=== PATIENT | male | born 1975 | race African-American/Black ===

== ENCOUNTER 2018-04-21 15:10 | Emergency (ER) | payer MEDICAID, SELFPAY ==
[2018-04-21 15:11] VITALS: BP 134/86; PULSE 75; RESP 15; TEMP 36.9; O2SAT 100; BMI 20.4
--- NOTE | 2018-04-21 17:09 | ED.RN ---
PT REPORTED TO THIS NURSE THAT HIS 'S THREE OLDER CHILDREN HAVE BEEN PENETRATING MY THREE YEAR OLD SON THIS NURSE THEN REPORTED THIS INFORMATION TO HRO, MARION LANDRUM.
--- NOTE | 2018-04-21 17:12 | ED.RN ---
HRO, MARION LANDRUM, INFORMED THIS NURSE THAT THERE IS AN OPEN CASE CURRENTLY ON THE PT'S CLAIMS.
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
[2018-04-21 17:39] LABS: Absolute Lymphocyte Count 1.98 X10^3/ul (0.83-4.51); Absolute Neutrophil Count 3.2 X10^3/uL (2.0-7.7); Basophil# 0.01 X10^3/uL; Basophil% 0.2 % (0-1); Eosinophil# 0.13 X10^3/uL; Eosinophils% 2.2 % (0-5); Hematocrit 39.2 % (40-54); Hemoglobin 12.9 g/dl (13.0-16.5); Lymphocyte # 1.98 X10^3/ul (4.0); Lymphocyte % 33.8 % (19-41); Mean Corp Hgb Conc 32.9 g/gl (32-36); Mean Corpuscular Hgb 24.7 pg (27.0-32.0); Mean Corpuscular Volume 75.1 fL (80-94); Mean Platelet Vol. 9.9 fl (6.2-12.0); Monocyte# 0.59 X10^3/uL; Monocyte% 10.1 % (0-10); Neutrophil # 3.15 X10^3/uL (2.7-7.7); Neutrophil % 53.7 % (47-70); Platelet Count 159 K/mm3 (150-450); RBC Distribution Width CV 13.3 % (11.6-14.6); RBC Distribution Width SD 36.3 fl (35.1-43.9); Red Blood Count 5.22 M/mm3 (4.6-6.2); White Blood Count 5.9 K/mm3 (4.4-11.0)
[2018-04-21 17:41] LABS: POSITIVE COUNT NO; POSITIVE DIFFERENTIAL NO; POSITIVE MORPHOLOGY NO
[2018-04-21 17:54] LABS: Anion Gap 5 (5-15); BUN 13 mg/dL (7-18); BUN/Creat Ratio 13.3 RATIO (10-20); Calcium,Total 9.2 mg/dL (8.5-10.1); Chloride 101 mmol/L (98-107); Creatinine, Serum 0.98 mg/dL (0.70-1.30); EST Glomerular Filtration Rate 89 mL/min (>60); Est Glom Filt Rate - Afr Amer 108 mL/min (>60); Estimated Creatinine Clearance 100.14 ml/min; Glucose 93 mg/dL (74-106); Potassium 3.9 mmol/L (3.5-5.1); Sodium Level 137 mmol/L (136-145)
--- NOTE | 2018-04-21 17:56 | ED.RN ---
PT CALLED ER, STATES SHE MUST HAVE INFORMATION. ATTEMPTED TO EXPLAIN TO THAT STAFF IS NOT ALLOWED TO GIVE PT INFORMATION OUT, BECAME UPSET. ATTEMPTED TO EXPLAIN AGAIN. STILL UPSET. LEFT PHONE NUMBER FOR OT CALL. [phone]
[2018-04-21 18:00] VITALS: RESP 16
[2018-04-21 18:17] LABS: Alcohol, Blood (Medical)-Serum < 3.0 mg/dL
[2018-04-21 18:53] LABS: Amphetamine Urine VISTA NEGATIVE (<1000 ng/mL); Barbiturate Urine VISTA NEGATIVE (< 200 ng/mL); Benzodiazepine Urine VISTA NEGATIVE (< 200 ng/mL); Cocaine Urine VISTA NEGATIVE (< 300 ng/mL); Ecstacy Urine VISTA NEGATIVE (< 500 ng/mL); Methadone Urine VISTA NEGATIVE (< 300 ng/mL); PCP Urine VISTA NEGATIVE (< 25 ng/mL); THC Urine VISTA POSITIVE (< 50 ng/mL); Vista UDS pH Range 6
[2018-04-21 20:00] VITALS: RESP 16
--- NOTE | 2018-04-21 20:55 | CM.ED ---
SOCIAL WORK NOTE PT REQUIRED CRISIS EVAL. STRIPPER OPAQUER, CARLOS HERE AND EVALUATED PT. CARLOS WORKING ON PLACEMENT TO OHP. NEENA CERDA, SYSTEMS DEVELOPER, BRANCH ASSISTANT.
[2018-04-21 22:00] VITALS: BP 142/88; PULSE 61; RESP 16; O2SAT 100
--- NOTE | 2018-04-21 23:26 | ED.RN ---
CARLOS FROM [facility] WAS HERE SEEING THIS PT WHEN I GOT HERE.
[2018-04-21 23:45] VITALS: PULSE 75; RESP 16
[2018-04-22] VITALS (18 sets, daily range): BP systolic 127–151; BP diastolic 74–111; PULSE 67–83; RESP 14–18; O2SAT 14–100
--- NOTE | 2018-04-22 11:11 | NURSING ---
NO OLD EKGS
[2018-04-22 13:00] LABS: AST(SGOT) 181 U/L (15-37); Alanine Aminotransfer ALT/SGPT 398 U/L (16-61); Albumin, Serum 4.1 g/dL (3.2-5.0); Alkaline Phosphatase 106 U/L (45-117); Bilirubin, Direct 0.29 mg/dL (0.00-0.30); Protein, Total 9.1 g/dL (6.4-8.2)
--- NOTE | 2018-04-22 14:55 | ED.RN ---
PT SIGNED RELEASE FOR [facility] TO DISCUSS ANY AND ALL OF HIS HEALTHCARE AND TREATMENTS WITH HIS .
[2018-04-22] MEDS: Ziprasidone IM 20 MG/ML VIAL IM (15:54)
--- NOTE | 2018-04-22 16:08 | ED.RN ---
Addendum entered by Cheli Daniels 04/22/18 16:16: PT ADVISED COULD BRING CELL PHONE TO VIDEO CHAT WITH CHILDREN. Original Note: PT BECAME AGITATED AFTER SPEAKING TO ON PHONE. PT REQUESTING LAP TOP SO HE CAN VIDEO CHAT WITH HIS CHILDREN. PT CALMED AFTER SPEAKING WITH THIS RN, BECAME COOPERATIVE. QUAN MURGUIA, PT COOPERATIVE WITH MED ADMINISTRATION.
--- NOTE | 2018-04-22 23:32 | ED.RN ---
PT'S GWEN TOOK PT'S [facility]ALLET HOME PER PT REQUEST PRIOR TO PT BEING TRANSFERRED TO [facility].
== END 2018-04-22 20:09 ==
PROVIDERS: Emergency Medicine; Emergency Provider Emergency Medicine
DX: F30.9 Manic episode, unspecified (principal); Z72.0 Tobacco use
CPT/HCPCS: 36415; 80048; 80076; 80307; 80320; 85025; 93005; 96372; 99283; G0480; J3486

== ENCOUNTER 2018-05-07 23:10 | Emergency (ER) | payer MEDICAID, SELFPAY ==
[2018-05-07 23:12] VITALS: BP 159/107; PULSE 85; RESP 16; TEMP 37; O2SAT 100; BMI 20.5
[2018-05-07 23:20] VITALS: BP 159/107; PULSE 85; RESP 16; TEMP 37; O2SAT 100
--- NOTE | 2018-05-07 23:32 | ED.VISSUMM ---
- ER Visit Summary Date of Service: 05/07/18 Chief Complaint: Left leg pain History of Present Illness: The patient is a 42 M who presents with left leg pain. He complains of sharp pain starting at the site of his hip and buttock and radiating all the way down his left leg. This is worse with movement or walking. He states he had a little bit of pain last night but it became more severe today. He denies any numbness tingling weakness. No abdominal pain urinary retention or fecal incontinence. No back pain. No history of trauma fall injury. No history of prior similar symptoms. No back surgeries. Physical Examination: Afebrile vitals notable for blood pressure 159/107 Patient resting comfortably in bed Moist mucous membranes Heart regular rate and rhythm Lungs clear Abdomen soft nontender nondistended Left lower extremity 2+ dorsalis pedis pulse normal sensation to light touch normal strength 5 out of 5 dorsiflexion, plantarflexion, extensor hallucis longus, no focal bony tenderness, active full range of motion Test Results: Not indicated Emergency Department Course and Treatment: I do believe the patient's symptoms are most likely related to lumbar radiculopathy. He was given naproxen here as well as a prescription for the same. He was advised of signs and symptoms to monitor for and understands to return for new or worsening symptoms and was discharged home. Treatment Plan: [] Disposition: Discharge Impression: Lumbar radiculopathy This note was generated with [email or web address] dictation software. It may contain incorrect words, spelling, and punctuation that were not noted in review of the chart prior to signing ED Disposition - Plan for ED Patient: Chief Complaint: Lower Extremity Injury Referrals: Care Physician,No Primary [Primary Care Provider] -
--- NOTE | 2018-05-07 23:35 | ED.DEP ---
ED Disposition - Plan for ED Patient: Chief Complaint: Lower Extremity Injury Instructions: ED Sciatica Prescriptions: Naproxen [Naprosyn] 500 mg PO BID #14 tab Referrals: Care Physician,No Primary [Primary Care Provider] -
[2018-05-07] MEDS: Naproxen 500 MG Tablet PO (23:37)
[2018-05-08 00:22] VITALS: BP 145/100; PULSE 94; RESP 16; O2SAT 100
--- NOTE | 2018-05-08 00:23 | ED.RN ---
PT encouraged to wait in lobby for ride home, given antiinflammatory. PT needed wheelchair to lobby for pain relief.
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
== END 2018-05-08 00:23 | disposition home or self-care (01) ==
PROVIDERS: Emergency Provider Emergency Medicine
DX: M54.16 Radiculopathy, lumbar region (principal); Z72.0 Tobacco use; F31.9 Bipolar disorder, unspecified
CPT/HCPCS: 99283

== ENCOUNTER 2018-07-12 09:27 | Emergency (ER) | payer MEDICAID, SELFPAY ==
[2018-07-12 09:31] VITALS: BP 142/119; PULSE 79; RESP 22; TEMP 36.7; O2SAT 100; BMI 22.2
--- NOTE | 2018-07-12 09:44 | ED.RN ---
PT GIVEN ICE WATER. PT LOUD STATING WE ARE DISRESPECTFUL BECAUSE HE IS BLACK. HE IS GOING TO [place] EVERYONE HERE. PT IS MANIC. THINKS HE IS TALKING TO GOD. STATES EVERYONE HERE IN THE HOSPITAL IS GOING TO TOMORROW.
[2018-07-12] MEDS: Ziprasidone IM 20 MG/ML VIAL IM ×2 (09:48→17:19)
--- NOTE | 2018-07-12 09:50 | ED.RN ---
PD WAS ABLE TALK PT INTO TAKING HIS MEDICATION.
[2018-07-12 10:28] VITALS: RESP 14
--- NOTE | 2018-07-12 10:46 | ED.RN ---
PT CALM AND RESPECTFUL SINCE QUAN. PT COOPERATIVE WITH WITH URINE COLLECTION AND LAB DRAW.
[2018-07-12 10:55] LABS: Anion Gap 9 (5-15); BUN 13 mg/dL (7-18); BUN/Creat Ratio 11.6 RATIO (10-20); Calcium,Total 8.7 mg/dL (8.5-10.1); Chloride 104 mmol/L (98-107); Creatinine, Serum 1.12 mg/dL (0.70-1.30); EST Glomerular Filtration Rate 76 mL/min (>60); Est Glom Filt Rate - Afr Amer 92 mL/min (>60); Estimated Creatinine Clearance 93.09 ml/min; Glucose 88 mg/dL (74-106); Potassium 3.4 mmol/L (3.5-5.1); Sodium Level 137 mmol/L (136-145)
[2018-07-12 10:57] LABS: Absolute Lymphocyte Count 1.15 X10^3/ul (0.83-4.51); Absolute Neutrophil Count 3.1 X10^3/uL (2.0-7.7); Basophil# 0.02 X10^3/uL; Basophil% 0.4 % (0-1); Eosinophil# 0.11 X10^3/uL; Eosinophils% 2.2 % (0-5); Hematocrit 37.1 % (40-54); Hemoglobin 12.3 g/dl (13.0-16.5); Lymphocyte # 1.15 X10^3/ul (4.0); Lymphocyte % 22.9 % (19-41); Mean Corp Hgb Conc 33.2 g/gl (32-36); Mean Corpuscular Hgb 24.7 pg (27.0-32.0); Mean Corpuscular Volume 74.5 fL (80-94); Mean Platelet Vol. 9.8 fl (6.2-12.0); Monocyte# 0.65 X10^3/uL; Monocyte% 12.9 % (0-10); Neutrophil % 61.6 % (47-70); Platelet Count 126 K/mm3 (150-450); RBC Distribution Width CV 13.3 % (11.6-14.6); RBC Distribution Width SD 36.2 fl (35.1-43.9); Red Blood Count 4.98 M/mm3 (4.6-6.2)
[2018-07-12 11:00] LABS: Amphetamine Urine VISTA NEGATIVE (<1000 ng/mL); Barbiturate Urine VISTA NEGATIVE (< 200 ng/mL); Benzodiazepine Urine VISTA NEGATIVE (< 200 ng/mL); Cocaine Urine VISTA NEGATIVE (< 300 ng/mL); Ecstacy Urine VISTA NEGATIVE (< 500 ng/mL); Methadone Urine VISTA NEGATIVE (< 300 ng/mL); PCP Urine VISTA NEGATIVE (< 25 ng/mL); THC Urine VISTA POSITIVE (< 50 ng/mL); Vista UDS pH Range 6
[2018-07-12 11:02] LABS: Differential Indicated SCAN CRITERIA MET; POSITIVE COUNT NO; POSITIVE DIFFERENTIAL NO; POSITIVE MORPHOLOGY YES
[2018-07-12 11:06] LABS: Differential Comment SCANNED
[2018-07-12 11:08] LABS: Anisocytosis 2+; Hypochromasia 1+; Microcytosis 2+
[2018-07-12 11:17] LABS: Alcohol, Blood (Medical)-Serum < 3.0 mg/dL
[2018-07-12] MEDS: LORazepam 1 MG Tablet PO (11:17)
--- NOTE | 2018-07-12 11:19 | ED.RN ---
CALLED [facility] ANSWERING GIVING MESSAGE TO COUNSELOR
--- NOTE | 2018-07-12 11:37 | ED.RN ---
BARRY MERAZ CALLED FROM THE [facility] AND WILL BE IN TO ACCESS PATIENT.
[2018-07-12 12:00] VITALS: RESP 14
--- NOTE | 2018-07-12 12:59 | ED.RN ---
BARRY MERAZ CALLED FROM THE [facility] AND SAID THEY HAVE ALOT GOING ON AND WASNT SURE WHEN HE COULD GET OVER HERE.
--- NOTE | 2018-07-12 13:56 | ED.RN ---
BARRY MERAZ CALLED AND SAID HE HAD A CLIENT TO SEE IN THE COMMUNITY AND THEN HE WOULD BE IN.
--- NOTE | 2018-07-12 15:02 | ED.VISSUMM ---
- ER Visit Summary Date of Service: 07/12/18 Chief Complaint: Agitation History of Present Illness: The patient is a 42 M patient brought in by police from home after called for increasing agitation. History of bipolar and paranoid schizophrenia, reports not taking his medications due to not needing them. Records reviewed, admitted this past March for which she reports was to [facility]. Reports having 5 children, denies suicidal homicidal ideations. Patient was agitated on arrival, he required chemical restraints with Geodon after arrival. Admits to THC use, denies alcohol or tobacco use. Review of pink slipped by police, reported patient banging on doors, reporting that he is God, making gestures of being God. Physical Examination: General: Alert and oriented ?3, no acute distress HEENT: Normocephalic, atraumatic. Moist mucosa membranes Neck: supple, nontender. Cardiovascular: Regular rate and rhythm, no murmurs Respiratory: Normal breath sounds, symmetric, no distress Abdomen: Soft, nontender, nondistended Extremities: Nontender, no edema, pulses intact ?4 Neuro: no focal neurological deficits. Psych: Denies suicidal homicidal ideation, tangentiality Test Results: Labs stable positive for THC. Alcohol negative. Emergency Department Course and Treatment: Patient evaluated by myself after Geodon he was calm. Denies suicidal homicidal ideations. Similar presentation in the past March requiring hospitalization. He is medically cleared, however during evaluation became more agitated requiring Ativan. [place] [facility] [place] Treatment Plan: [] Disposition: Pending Impression: 1. manic behavior 2. Medical noncompliance 3. Bipolar history 4. Paranoid schizophrenia history This note was generated with [employer] dictation software. It may contain incorrect words, spelling, and punctuation that were not noted in review of the chart prior to signing ED Disposition - Plan for ED Patient: Diagnosis: Manic behavior, Hx of bipolar disorder, Hx of paranoid schizophrenia Referrals: Care Physician,No Primary [Primary Care Provider] -
--- NOTE | 2018-07-12 15:05 | ED.DCSUM_ITS ---
- ER Visit Summary Date of Service: 07/12/18 Chief Complaint: Agitation History of Present Illness: The patient is a 42 M patient brought in by police from home after called for increasing agitation. History of bipolar and paranoid schizophrenia, reports not taking his medications due to not needing t hem. Records reviewed, admitted this past March for which she reports was to [facility]. Reports having 5 children, denies suicidal homicidal ideations. Patient was agitated on arrival, he required chemical restraints with Geodon after arrival. Admits to THC use, denies alcohol or tobacco use. Review of pink slipped by police, reported patient banging on doors, reporting that he is God, making gestures of being God. Physical Examination: General: Alert and oriented ?3, no acute distress HEENT: Normocephalic, atraumatic. Moist mucosa membranes Neck: supple, nontender. Cardiovascular: Regular rate and rhythm, no murmurs Respiratory: Normal breath sounds, symmetric, no distress Abdomen: Soft, nontender, nondistended Extremities: Nontender, no edema, pulses intact ?4 Neuro: no focal neurological deficits. Psych: Denies suicidal homicidal ideation, tangentiality Test Results: Labs stable positive for THC. Alcohol negative. Emergency Department Course and Treatment: Patient evaluated by myself after Geodon he was calm. Denies suicidal homicidal ideations. Similar presentation in the past March requiring hospitalization. He is medically cleared, however during evaluation became more agitated requiring Ativan. Currently [place] [facility] [place]. Treatment Plan: [] Disposition: Pending Impression: 1. manic behavior 2. Medical noncompliance 3. Bipolar history 4. Paranoid schizophrenia history This note was generated with [employer] dictation software. It may contain incorrect words, spelling, and punctuation that were not noted in review of the chart prior to signing ED Disposition - Plan for ED Patient: Diagnosis: Manic behavior, Hx of bipolar disorder, Hx of paranoid schizophrenia Referrals: Care Physician,No Primary [Primary Care Provider] -
[2018-07-12 16:42] VITALS: BP 144/107; PULSE 84; RESP 16; O2SAT 97
[2018-07-12 17:58] VITALS: BP 142/96; PULSE 87; RESP 16; O2SAT 98
--- NOTE | 2018-07-12 19:48 | ED.RN ---
DURING RN TO RN REPORT WITH LOVE BARROS I WAS INSTRUCTED TO ADD LIVER PROFILE TO PT'S ORDERS. DUE TO PRIOR HX OF ELEVATED LIVER ENZYMES. LIVER PANEL ORDER OBTAINED AND PLACED. LOVE INSTRUCTED ME THAT SHE WOULD NEED TO NOTIFY HER WELLNESS INSTRUCTOR ABOUT CONCERNS FOR INAPPROPRIATE PLACEMENT ON THERE FLOOR. I WAS THEN INSTRUCTED THAT IT WAS THEIR PROTOCOL THAT TRANSPORT ONLY BE CALLED AFTER RN TO RN REPORT WAS CALLED AND PT WAS OUT OF RESTRAINTS FOR AN HOUR. A SECOND CALL WAS PLACED BY JULY ABOUT CONCERNS AND REPORT WAS GIVEN A SECOND TIME. SHE WAS ALSO INQUIRING ABOUT PT'S AGGRESSIVE BEHAVIOR AND TREATMENT OF STAFF. AT WHICH TIME I WAS INSTRUCTED TO FAX FINDS TO THEIR FACILITY AND ADMISSION WOULD RE-EVALUATE PT. CRISIS AND ED DR WAS INFORMED. FAMILY WAS UPDATE. PT IS RESTING IN BED WITH NO S/S OF DISTRESS. Tiffanie HILLS RN 2021
[2018-07-12 20:08] LABS: AST(SGOT) 82 U/L (15-37); Alanine Aminotransfer ALT/SGPT 67 U/L (16-61); Albumin, Serum 4.1 g/dL (3.2-5.0); Alkaline Phosphatase 84 U/L (45-117); Bilirubin, Direct 0.34 mg/dL (0.00-0.30); Globulin 3.9 g/dL (2.2-4.2)
--- NOTE | 2018-07-12 21:17 | ED.RN ---
NOTIFIED HARI FROM THE COUNSELING CENTER THAT THIS PT HAS BEEN DENIED AT [facility].
--- NOTE | 2018-07-12 21:44 | ED.RN ---
MOTHER IN LAW HAS TAKEN PT'S PHONE AND CARDS. PT STILL HAS HIS WALLET AND CLOTHES. PT WAS WOKEN UP AND TOLD OF BELONGINGS BEING TAKEN HOME. MOTHER IN LAW HAS LEFT WIVES PHONE NUMBER [phone] AND HER NAME IS ANDREA. Tiffanie HILLS, RN [phone]
[2018-07-12 22:00] VITALS: BP 156/96; PULSE 60; RESP 16; O2SAT 97
[2018-07-13] VITALS (7 sets, daily range): BP systolic 115–173; BP diastolic 70–90; PULSE 62–73; RESP 15–24; TEMP 36.3; O2SAT 93–99
[2018-07-13] MEDS: Ziprasidone IM 20 MG/ML VIAL IM (03:02)
[2018-07-13] MEDS: LORazepam 2 MG/ML Syringe IM (03:10)
--- NOTE | 2018-07-13 03:18 | ED.RN ---
PT CAME TO THE NURSES STATION REQUESTING TO GO HOME. THIS NURSE ATTEMPTED TO EXPLAIN HE IS GOING TO A HOSPITAL IN [place]. PT STATES I'M NOT GOING TO [place]. DEPORT ME TO [facility]. THIS NURSE CONVINCED PT TO GO BACK INTO HIS ROOM. I ATTEMPTED TO TALK WITH THE PT AND EXPLAIN WHAT MEDICATIONS HE HAS RECEIVED AND THE REASON HE HAS RECEIVED MEDICATIONS. ALSO ATTEMPTED TO EXPLAIN TO THE PT WHY HE IS BEING TRANSFERRED TO ANOTHER HOSPITAL. PT CONTINUES TO MOVE AROUND THE ROOM YELLING AND MOVING HIS ARMS AROUND. THIS NURSE CONTINUED TO ATTEMPT TO TALK WITH THE PT. TOMMY GÓMEZ IN THE DEPARTMENT. THIS NURSE CONTINUED TO TALK WITH THE PT AND CONVINCE THE PT TO GET INTO THE BED AND ALLOW THE STAFF TO GIVE HIM SOME MEDICATION TO HELP HIS CALM DOWN. PT BECAME LOUDER AND MOVING AROUND THE ROOM MORE. PT STATES WOMAN, WOMAN, WOMAN, WOMAN, YOU ARE DISRESPECTING ME. I CONTINUED TO ATTEMPT TO TALK WITH THE PT AND CALM HIM DOWN. PT REFUSING TO GET INTO THE BED AND REFUSING MEDICATION. THIS NURSE OFFERED THE PT MILK WHICH HE REQUESTED BUT THE PT REFUSED THE MILK BECAUSE HE DID NOT OPEN THE CARTON. I CONTINUED TO ATTEMPT TO TALK WITH THE PT AND EXPLAIN HIS CARE AND NEED FOR TRANSFER. PT CONTINUES TO GET LOUD AND MORE ANIMATED. AT THIS POINT, TOMMY GÓMEZ ENTERED THE ROOM AND TWO POLICE OFFICERS ASSISTED TO PT INTO THE BED. AN ADDITIONAL RED HAT LINUX ADMINISTRATOR AND FOUR STAFF MEMBERS PLACED THE PT IN FOUR POINT LOCKED RESTRAINTS
--- NOTE | 2018-07-13 04:51 | ED.RN ---
PT SLEEPING. WHEN AWAKENS PT IS COOPERATIVE. RESTRAINTS DISCONTINUED. DR SANTO AWARE
== END 2018-07-13 08:26 ==
PROVIDERS: Emergency Medicine; Emergency Provider Emergency Medicine
DX: F31.9 Bipolar disorder, unspecified (principal); F20.0 Paranoid schizophrenia; Z91.19 Patient's noncompliance with other medical treatment and regimen; F12.90 Cannabis use, unspecified, uncomplicated; Z72.0 Tobacco use
CPT/HCPCS: 36415; 80048; 80076; 80307; 80320; 85025; 96372; 99285; J7030; A4216; G0480; J3486

== ENCOUNTER 2019-05-04 19:24 | Emergency (ER) | payer MEDICAID, SELFPAY ==
[2019-05-04 19:26] VITALS: BP 169/133; PULSE 119; RESP 16; TEMP 37.2; O2SAT 98; BMI 22.6
[2019-05-04 20:46] LABS: Absolute Lymphocyte Count 1.86 X10^3/uL (0.83-4.51); Absolute Neutrophil Count 2.7 X10^3/uL (2.0-7.7); Basophil# 0.02 X10^3/uL; Basophil% 0.4 % (0-1); Eosinophil# 0.19 X10^3/uL; Eosinophils% 3.6 % (0-5); Hematocrit 38.6 % (40-54); Hemoglobin 12.2 g/dL (13.0-16.5); Lymphocyte # 1.86 X10^3/ul (4.0); Mean Corp Hgb Conc 31.6 g/dL (32-36); Mean Corpuscular Hgb 23.9 pg (27.0-32.0); Mean Corpuscular Volume 75.5 fL (80-94); Mean Platelet Vol. 10.2 fl (6.2-12.0); Monocyte# 0.59 X10^3/uL; Monocyte% 11.1 % (0-10); NRBC Flagged by Analyzer 0 % (0-5); Neutrophil # 2.65 X10^3/uL (2.7-7.7); Neutrophil % 49.7 % (47-70); Platelet Count 184 K/mm3 (150-450); RBC Distribution Width CV 12.3 % (11.6-14.6); RBC Distribution Width SD 33.3 fl (35.1-43.9); Red Blood Count 5.11 M/mm3 (4.6-6.2); White Blood Count 5.3 K/mm3 (4.4-11.0)
[2019-05-04 20:56] LABS: Amphetamine Urine VISTA NEGATIVE (<1000 ng/mL); Anion Gap 3 (5-15); BUN 18 mg/dL (7-18); BUN/Creat Ratio 14.4 RATIO (10-20); Barbiturate Urine VISTA NEGATIVE (< 200 ng/mL); Benzodiazepine Urine VISTA NEGATIVE (< 200 ng/mL); Calcium,Total 9.1 mg/dL (8.5-10.1); Chloride 104 mmol/L (98-107); Cocaine Urine VISTA NEGATIVE (< 300 ng/mL); Creatinine, Serum 1.25 mg/dL (0.70-1.30); EST Glomerular Filtration Rate 67 mL/min (>60); Ecstacy Urine VISTA NEGATIVE (< 500 ng/mL); Est Glom Filt Rate - Afr Amer 81 mL/min (>60); Estimated Creatinine Clearance 86.22 ml/min; Glucose 90 mg/dL (74-106); Methadone Urine VISTA NEGATIVE (< 300 ng/mL); PCP Urine VISTA NEGATIVE (< 25 ng/mL); Potassium 4.2 mmol/L (3.5-5.1); Sodium Level 137 mmol/L (136-145); THC Urine VISTA POSITIVE (< 50 ng/mL); Vista UDS pH Range 6
--- NOTE | 2019-05-04 21:00 | ED.RN ---
CALLED CRISIS AT THE REQUEST OF DR PAGE TO SEE THIS PT, ANGIE IS PILLOWCASE TURNER
[2019-05-04 21:05] LABS: Alcohol, Blood (Medical)-Serum < 3.0 mg/dL
[2019-05-04 21:25] VITALS: RESP 18
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
[2019-05-04 23:00] VITALS: BP 116/76; PULSE 73; RESP 18; O2SAT 98
[2019-05-04 23:07] VITALS: BP 155/81; PULSE 106; RESP 18; O2SAT 98
== END 2019-05-04 23:08 | disposition home or self-care (01) ==
PROVIDERS: Emergency Provider Emergency Medicine; Family Provider Registered Nurse; PCP Registered Nurse
DX: F31.9 Bipolar disorder, unspecified (principal); F20.9 Schizophrenia, unspecified; F17.200 Nicotine dependence, unspecified, uncomplicated; Z91.14 Patient's other noncompliance with medication regimen
CPT/HCPCS: 80048; 80307; 80320; 85025; 99284; G0480

== ENCOUNTER 2019-06-07 10:33 | Emergency (ER) | payer MEDICAID, SELFPAY ==
[2019-06-07 10:34] VITALS: BP 173/126; PULSE 102; RESP 18; TEMP 36.8; O2SAT 99; BMI 21.8
[2019-06-07 11:17] LABS: Absolute Lymphocyte Count 2.55 X10^3/uL (0.83-4.51); Absolute Neutrophil Count 2.8 X10^3/uL (2.0-7.7); Basophil# 0.03 X10^3/uL; Basophil% 0.5 % (0-1); Eosinophil# 0.16 X10^3/uL; Eosinophils% 2.6 % (0-5); Hematocrit 40.4 % (40-54); Hemoglobin 13.1 g/dL (13.0-16.5); Lymphocyte # 2.55 X10^3/ul (4.0); Mean Corp Hgb Conc 32.4 g/dL (32-36); Mean Corpuscular Hgb 24.6 pg (27.0-32.0); Mean Corpuscular Volume 75.8 fL (80-94); Mean Platelet Vol. 9.4 fl (6.2-12.0); Monocyte# 0.49 X10^3/uL; Monocyte% 8.1 % (0-10); NRBC Flagged by Analyzer 0 % (0-5); Neutrophil # 2.82 X10^3/uL (2.7-7.7); Neutrophil % 46.5 % (47-70); Platelet Count 193 K/mm3 (150-450); RBC Distribution Width CV 13.2 % (11.6-14.6); RBC Distribution Width SD 35.4 fl (35.1-43.9); Red Blood Count 5.33 M/mm3 (4.6-6.2); White Blood Count 6.1 K/mm3 (4.4-11.0)
[2019-06-07 11:26] LABS: Anion Gap 5 (5-15); BUN 11 mg/dL (7-18); BUN/Creat Ratio 8.3 RATIO (10-20); Calcium,Total 9.2 mg/dL (8.5-10.1); Chloride 106 mmol/L (98-107); Creatinine, Serum 1.32 mg/dL (0.70-1.30); EST Glomerular Filtration Rate 63 mL/min (>60); Est Glom Filt Rate - Afr Amer 76 mL/min (>60); Estimated Creatinine Clearance 78.69 ml/min; Glucose 148 mg/dL (74-106); Potassium 3.7 mmol/L (3.5-5.1); Sodium Level 138 mmol/L (136-145)
[2019-06-07 11:33] LABS: Alcohol, Blood (Medical)-Serum < 3.0 mg/dL
--- NOTE | 2019-06-07 11:37 | ED.DCSUM_ITS ---
History of Present Illness Informant: Patient, - - Police Onset: Today Context: Sudden Onset Conflict: - - Confucianist Timing: Continuous Current Severity: Severe Maximum Severity: Severe Worsened by: Situational factors Associated Symptoms: Agitated, Angry, Hostile, Threatening. Negative for: Depressed, Change in Eating, Change in sleeping, Decreased Interest, Guilt, Decreased Concentration, Hopelessness, Suicidal Thoughts, Easily distracted, Grandiosity, Flight of Ideas, Increased activity, Pressured Speech, Confusion, Paranoia, Visual Hallucinations, Auditory Hallucinations Specific plan (suicidal thought): None. Denies thoughts of suicide. Narrative: 43-year-old male with a history of bipolar disorder is brought into the emergency department by the police after the patient had a episode at his [place] where he was very agitated and threatening to the members of the [employer] and ther [facility] police were called who had to bring him to the emergency department. Patient states that last week he had been thrown out of Bible study because he disagreed with the regional sales engineer who was also the teacher and was told never to come back but he went back today because he states that he loves God and really feels like he gets a lot of enjoyment out of Bible study but when he came he states the regional sales engineer told him he was not welcome in the class anymore after last week and the patient became very upset and he states that the next thing that he realized police were there and he got very agitated admittedly and anger at the police because they wanted to bring him outside of the [employer] and he was very angry he was yelling but he was not physically harming anyone but they brought him outside had to take him down requiring multiple officers and bring him to the hospital. Patient is not suicidal or homicidal and he states that he has been taking his medications he just became upset because he gets a lot of enjoyment out of Bible study and is unable to go anymore. He denies drugs or alcohol. He did not physically harm anyone at the [employer]. Prior similar symptoms: Yes Recent Illness/Hospitalization: No <Josep Dailey - Last Filed: 06/07/19 15:11> <Katy Partida - Last Filed: 06/07/19 15:25> Chief Complaint: Mental Health Past Medical History Prior records reviewed: Yes Past Medical History: - - Bipolar disorder Surgical History: no surgical history Lives: With Family Smoking Status: Never smoker Alcohol: None Drugs: None <Josep Dailey - Last Filed: 06/07/19 15:11> <HelgaKaty - Last Filed: 06/07/19 15:25> - Allergies and Home Meds Allergies/Adverse Reactions: Allergies No Known Allergies Allergy (Verified 06/07/19 10:34) Primary Care Physician: Malou Cabrera NP-C [Primary Care Provider] - 1 Day Review of Systems All systems negative except as indicated General: Denies: Chills, Fever Eyes: Denies: Visual changes - bilaterally, Blurred Vision - bilaterally, Diplopia ENT: Denies: Rhinorrhea, Sore throat Respiratory: Denies: Dyspnea, Cough, Sputum Gastrointestinal: Denies: Abdominal pain, Nausea, Vomiting, Diarrhea Genitourinary: Denies: Dysuria, Hematuria, Frequency Musculoskeletal: Denies: Myalgias, Arthralgias, Neck pain, Back pain, Swelling, Extremity Pain Skin: Denies: Rash, Abscess, Abrasions, Wounds Neurological: Denies: Weakness, Parasthesia, Numbness Psych: Denies: Depression, Anxiety, Suicidal thoughts, Suicidal ideations <Josep Dailey - Last Filed: 06/07/19 15:11> Physical Exam Vital Signs/Narrative: Vital Signs Temp Pulse Resp BP Pulse Ox 06/07/19 10:34 98.2 F 102 H 18 173/126 H 99 Inital Vital Signs reviewed: Yes General: Well nourished, Well developed Head: Normocephalic, Atraumatic Eyes: Perrl, EOMI ENT: Moist mucous membranes Neck: Supple, Nontender Cardiovascular: Regular rate, Regular rhythm, No murmurs Respiratory: No distress, CTA bilaterally, Chest nontender Abdomen: Soft, Nontender, Nondistended, Normal bowel sounds, No masses Back: Nontender, Normal Inspection Extremities: Nontender, No Edema Skin: Normal color, No rash Neurological: Alert, Oriented x3, Normal Strength, Normal Sensation, Normal Gait Psych: Normal Speech Pattern, Logical sequential goal directed thoughts, No suicidal or homicidal ideation, Normal Appearance, Poor Judgement. Negative for: Pressured Speech, Poverty of Speech, Flight of Ideas, Incoherent thoughts, Suicidal thoughts, Homicidal thoughts, Hallucinations, Delusions <Josep Dailey - Last Filed: 06/07/19 15:11> Vital Signs/Narrative: Vital Signs Pulse Resp BP Pulse Ox 06/07/19 12:55 68 18 159/113 H 100 <Katy Partida - Last Filed: 06/07/19 15:25> Diagnostic/Tx/Re-eval Restraints applied: No Repeat interview and exam performed by/time: Josep dailey at 1511. resting comfortably. cooperative. Patient's medical screening evaluation was unremarkable and we did have him speak with our crisis counselors. After thorough evaluation they determined they did not feel he needed to be hospitalized and they stated to me that he has an appointment with his counselor in 2 days but patient's states that she will call the counselor tomorrow with hopes that he may be seen tomorrow. During his emergency department stay the patient was calm and cooperative without the need for restraints. No medications were given. He was discharged with his . <Josep Dailey - Last Filed: 06/07/19 15:11> I have personally performed a [id number] assessment of the patient and have reviewed the PA note. My seya findings include 43-year-old male presenting after disturbance at Bible study. Patient denies suicidal or homicidal ideation. He states he was upset when he had a disagreement over interpretation of the Bible with the regional sales engineer. He states he was asked to not come back. He states this further upset him. He is now calm and cooperative. He will be evaluated by the counseling center in the ED. <Katy Partida - Last Filed: 06/07/19 15:25> ED Disposition <Josep Dailey - Last Filed: 06/07/19 15:11> <Katy Partida - Last Filed: 06/07/19 15:25> - Plan for ED Patient: Disposition: Home or Assisted Living Instructions: Bipolar Disorder Referrals: Malou Cabrera NP-C [Primary Care Provider] - 1 Day
[2019-06-07 11:55] LABS: Amphetamine Urine VISTA NEGATIVE (<1000 ng/mL); Barbiturate Urine VISTA NEGATIVE (< 200 ng/mL); Benzodiazepine Urine VISTA NEGATIVE (< 200 ng/mL); Cocaine Urine VISTA NEGATIVE (< 300 ng/mL); Ecstacy Urine VISTA NEGATIVE (< 500 ng/mL); Methadone Urine VISTA NEGATIVE (< 300 ng/mL); PCP Urine VISTA NEGATIVE (< 25 ng/mL); THC Urine VISTA POSITIVE (< 50 ng/mL); Vista UDS pH Range 6
[2019-06-07 12:55] VITALS: BP 159/113; PULSE 68; RESP 18; O2SAT 100
--- NOTE | 2019-06-07 13:17 | ED.RN ---
BELEN WITH CRISIS WILL BE IN SOON SHE CAN
--- NOTE | 2019-06-07 13:18 | ED.RN ---
PT RESTING QUIETLY IN BED WATCHING TV, REMAINS COOPERATIVE AT THIS TIME. ATE LUNCH, THANKED THIS RN PROFUSELY. DENIES FURTHER NEEDS.
== END 2019-06-07 15:49 | disposition home or self-care (01) ==
PROVIDERS: Emergency Provider Physician Assistant Medical; PCP Registered Nurse
DX: F31.9 Bipolar disorder, unspecified (principal); Z79.899 Other long term (current) drug therapy
CPT/HCPCS: 80048; 80307; 80320; 85025; 99283; G0480

== ENCOUNTER 2019-09-11 11:53 | Emergency (ER) | payer MEDICAID, SELFPAY ==
[2019-09-11] VITALS (9 sets, daily range): BP systolic 122–186; BP diastolic 89–120; PULSE 76–102; RESP 16–21; TEMP 35.9; O2SAT 94–98; BMI 21.6
--- NOTE | 2019-09-11 12:08 | EKG12_ITS ---
Test Reason : Blood Pressure : / mmHG Vent. Rate : 092 BPM Atrial Rate : 092 BPM P-R Int : 148 ms QRS Dur : 084 ms QT Int : 338 ms P-R-T Axes : 075 085 033 degrees QTc Int : 417 ms Sinus rhythm with sinus arrhythmia with occasional Premature ventricular complexes Otherwise normal ECG Confirmed by ELVIA HUGHES, WOODY ([id number]), editorial intern JHONNY LANDRUM ([id number]) on 09/15/2019 3:00:16 PM Referred By: VAISHNAVI Confirmed By:WOODY GAN MD
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
[2019-09-11] MEDS: Ziprasidone IM 20 MG/ML VIAL IM (12:15)
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
[2019-09-11] MEDS: LORazepam 2 MG/ML Syringe IM (12:45)
[2019-09-11] MEDS: Midazolam 2 MG/2 ML Syringe IM (12:45)
[2019-09-11 13:29] LABS: Bacteria 0 SEEN /hpf (None Seen); Mucous, Urine 0 SEEN /hpf (<or=2+); Squamous Epithelial Cells - UA 0 SEEN /hpf (0-5); White Blood Cells 0 SEEN /hpf (0-5)
[2019-09-11 13:37] LABS: Color, Urine Yellow (Yellow); Glucose, Dipstick Normal (Normal); Ketone-Dipstick Negative (Negative); Leukocyte Esterase-Dipstick Negative /ul (Negative); Nitrite-Dipstick Negative (Negative); Occult Blood-Urine 10 /ul (Negative); Protein-Dipstick 100 mg/dl (Negative); Urine Bilirubin Dipstick Negative (Negative); Urine Clarity Clear (Clear); Urine Urobilinogen 1 mg/dl (Normal)
[2019-09-11 13:40] LABS: Absolute Lymphocyte Count 1.05 X10^3/uL (0.83-4.51); Absolute Neutrophil Count 3.1 X10^3/uL (2.0-7.7); Basophil# 0.03 X10^3/uL; Basophil% 0.6 % (0-1); Eosinophil# 0.13 X10^3/uL; Eosinophils% 2.7 % (0-5); Hemoglobin 12.9 g/dL (13.0-16.5); Lymphocyte # 1.05 X10^3/ul (4.0); Lymphocyte % 21.8 % (19-41); Mean Corp Hgb Conc 32.3 g/dL (32-36); Mean Corpuscular Hgb 24.1 pg (27.0-32.0); Mean Corpuscular Volume 74.8 fL (80-94); Mean Platelet Vol. 10.2 fl (6.2-12.0); Monocyte# 0.48 X10^3/uL; NRBC Flagged by Analyzer 0 % (0-5); Neutrophil # 3.12 X10^3/uL (2.7-7.7); Neutrophil % 64.7 % (47-70); Platelet Count 155 K/mm3 (150-450); RBC Distribution Width CV 13.9 % (11.6-14.6); RBC Distribution Width SD 36.9 fl (35.1-43.9); Red Blood Count 5.35 M/mm3 (4.6-6.2); White Blood Count 4.8 K/mm3 (4.4-11.0)
[2019-09-11 13:53] LABS: Amphetamine Urine VISTA NEGATIVE (<1000 ng/mL); Barbiturate Urine VISTA NEGATIVE (< 200 ng/mL); Benzodiazepine Urine VISTA POSITIVE (< 200 ng/mL); Cocaine Urine VISTA NEGATIVE (< 300 ng/mL); Ecstacy Urine VISTA NEGATIVE (< 500 ng/mL); Methadone Urine VISTA NEGATIVE (< 300 ng/mL); PCP Urine VISTA NEGATIVE (< 25 ng/mL); THC Urine VISTA POSITIVE (< 50 ng/mL); Vista UDS pH Range 7
[2019-09-11 13:53] LABS: ALB/GLOB Ratio 0.7 RATIO (0.9-2.4); AST(SGOT) 178 U/L (15-37); Alanine Aminotransfer ALT/SGPT 444 U/L (16-61); Albumin, Serum 3.8 g/dL (3.2-5.0); Alkaline Phosphatase 109 U/L (45-117); Anion Gap 6 (5-15); BUN 13 mg/dL (7-18); BUN/Creat Ratio 9.9 RATIO (10-20); Calcium,Total 9.2 mg/dL (8.5-10.1); Chloride 108 mmol/L (98-107); Creatinine, Serum 1.31 mg/dL (0.70-1.30); EST Glomerular Filtration Rate 63 mL/min (>60); Est Glom Filt Rate - Afr Amer 77 mL/min (>60); Estimated Creatinine Clearance 80.56 ml/min; Globulin 5.4 g/dL (2.2-4.2); Glucose 105 mg/dL (74-106); Potassium 3.3 mmol/L (3.5-5.1); Protein, Total 9.2 g/dL (6.4-8.2); Sodium Level 141 mmol/L (136-145)
[2019-09-11 13:58] LABS: Red Blood Cells-Urine 0-5 SEEN /hpf (0-5)
[2019-09-11 14:04] LABS: Alcohol, Blood (Medical)-Serum < 3.0 mg/dL
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
--- NOTE | 2019-09-11 20:33 | ED.RN ---
spoke with amol HUGHES to remove last restraint. pt on phone with his .
--- NOTE | 2019-09-11 23:45 | NURSING ---
TALKED TO BELEN AT 1550
[2019-09-12] VITALS: BP 123/98; PULSE 84; RESP 16; O2SAT 96
--- NOTE | 2019-09-12 00:30 | ED.RN ---
Pt screamed out and this nurse entered room, pt reported there is a demon in me and it wants out, it hurts, no one in [place] can figure out what is wrong pt was given emotional support. pt currently talking to Maris from crisis.
[2019-09-12 02:44] VITALS: RESP 14
[2019-09-12 03:00] VITALS: BP 155/78; PULSE 87; RESP 15; TEMP 36.9; O2SAT 99
[2019-09-12 06:22] LABS: CPK Total, Creatine Kinase 2057 U/L (39-308)
--- NOTE | 2019-09-12 07:00 | NURSING ---
FAXED LAB TO HOSPITAL
--- NOTE | 2019-09-12 08:15 | NURSING ---
ACCEPTED AT [facility]
[2019-09-12 08:37] VITALS: BP 179/135; PULSE 117; O2SAT 99
--- NOTE | 2019-09-12 08:40 | NURSING ---
CALLED [facility] FOR [facility]SPORT. ETA IS 3 HRS
[2019-09-12 10:13] VITALS: BP 142/113; PULSE 76; RESP 22; O2SAT 96
--- NOTE | 2019-09-12 10:27 | ED.RN ---
REPORT GIVEN TO EMS CREW
== END 2019-09-12 10:28 ==
LOC: ED 13:01
PROVIDERS: Emergency Medicine; Emergency Provider Emergency Medicine
DX: F31.2 Bipolar disorder, current episode manic severe with psychotic features (principal); F22 Delusional disorders; Z91.14 Patient's other noncompliance with medication regimen; F17.210 Nicotine dependence, cigarettes, uncomplicated
CPT/HCPCS: 80053; 80307; 80320; 81001; 82550; 85025; 87635; 93005; 96372; 99285; G2023; P9612; G0480; J3486; U0004

== ENCOUNTER 2019-09-22 09:00 | Outpatient (RCR) | payer MEDICAID, SELFPAY ==
[2019-09-11 12:00] VITALS: BMI 21.6
--- NOTE | 2019-09-22 09:00 | BH.COMM ---
Communication Note - Communication with Client Communication Note: Met with pt to complete intial paperwork. No significant changes since pre-admission screening. Medication compliant. Sleep is appropriate. Met with his psychiatrist yesterday and has appt with outpatient therapist today.Complete [place] Suicide [facility]. Low risk. Denies any suicidal thoughts for past 30 years.
--- NOTE | 2019-09-22 10:58 | BH.MDN_ITS ---
Multi-Disciplinary Note - Note 30-min Individual Time Started:: 10:10 Date: 09/22/19 Purpose of session/treatment goals addressed:: At the begining of second group in IOP day pt noted that he was over-stimulated. This therapist took him into office to speak with him. Eye Contact:: Good Motor Activity:: Restless - Pt stands during the session. States being restless since discharge from inpt. He spoke with his psychiatrist yesterday and no medication changes. Appearance:: Casual Speech:: Pressured Mood:: Anxious Affect:: Congruent Thoughts:: Linear, Logical, Racing, No evidence of hallucinations/delusions noted Staff Interventions:: Active listening, problem-solving skills, reviewed coping skills to helpe with anxiety. Client Response:: Pt reports that he often hears music inside his head which makes it very challenging for him to focus on tasks at times. He states that this is an everyday occurence for the past several years. He states that the music is positive and encouraging and normally helpful however when in public (stores, groups) it can impact his focus. Normally he will sing outloud with the song to help it leave his head however he understands that this is not appropriate in the group setting which is why I told the teacher. He denies any visual or command hallucinations. Alert and oriented. While he is focused on temple he is not delusional or religiously pre-occupied. Insight that while temple is important he knows that in [place] it can upset people if he comes off as too synagogue. He beleives that his temple and connect with his spirituality is very important to him and bring him energy to work through things. He admits that it is difficult to identify what is spiritual or synagogue and what is symptom of Bipolar. He attempted to problem-solve ways to decrease external stimuli and help with decreasing the impact of internal stimulation. He beleives that he felt hurried this AM and that this was new environment which may have caused increased anxiety which exacerbated the music. He remains restless however is pleasant and smiling, He states I really need continued help to get better and I don't want to mess this up. We agreed that it may be best to leave IOP early today to decrease stimuli and anxiety. Risks/Concerns:: Denies any suicidal ideations, plan, or intent. Alert and oriented. Restless. Internal stimulation which is baseline per pt. No overt symptoms which would require involuntary admission. Medication compliant. Sleeping well. Progress Toward Goals/Plan:: Pt agreeable with returning to [facility] tomorrow to meet with psychiatrist. Will discuss with treatment team this afternoon. It may be most beneficial to provide daily individual counseling with pt to help prevent decompensation and stablize symptoms. Fearful that groupwork may be to over- stimulating at first. Would not be beneficial to discharge as pt does not have consistent follow-up with outpatient providers and can only meet with therapist bi-monthly and only through telephone. Fearful w/o structured intense treatment pt will decompensate. Time Stopped:: 10:35
--- NOTE | 2019-09-23 10:20 | BH.COMM_ITS ---
Communication Note - Communication with Client Communication Note: Pt was scheduled to attend IOP today and meet with maureen oliver. Pt called in at 930a cancelling. Stated that he had a verbal argument with his last night which increased my riley. Reports that he had some difficulty falling asleep due to ruminating on the arguement and did not fall asleep till 3am. Took meds as prescribed per pt report. Reports that he remains tired and does not have transportation into the program. He is unclear on the current status with his . is primary support as well as primarly means of transportation. Encouraged him to get his sleep. He plans on returning to the program this week and will reach out to this worker when he has secured transportation. Encouraged him to call crisis or go the the ER should he feel that his symptoms worsen. Pt was alert and oriented with normal speech rate on phone. Significant set-back today as he missed psychiatrist appt and will need to wait till next week to meet with psychiatry.
--- NOTE | 2019-09-24 09:52 | BH.COMM ---
Communication Note - Communication with Client Communication Note: Pt did not show for IOP today. No way to contact pt as both his phone and his 's is not currently working.
--- NOTE | 2019-09-25 09:20 | BH.COMM ---
Communication Note - Communication with Client Communication Note: Pt called in this AM cancelling IOP for today. States that he is too restless. Restlessness is currently impacting his sleep. Fearful that he will decompensate. Unable to make medication adjustments in IOP as he missed psych appt on 09/23/19 and physician unable to prescribe w/o intial psychiatric assessemtn with patient. [facility] spoke with nurse Gongora. Appt was set for pt to meet with [facility] psych Malou Cabrera on 09/29/19. This therapist reached out to FIORELLA Tao at the [facility] and she has discussed case with Malou and they are going to decrease his Abilify and add Cogentin to help with restlessness today. Encouraged pt to keep this therapist updated on his progress. While pt has missed several IOP sessions it would not be beneficial to discharge from the program as he continues to require IOP level of care.
--- NOTE | 2019-09-29 16:35 | BH.COMM ---
Communication Note - Communication with Client Communication Note: Spoke with pt this afternoon. He had a telehealth session with his psychiatrist this afternoon. Was started on Cogentin last week and beleives that he is starting to see benefits as he is less restless. He is going to attempt to come to IOP tomorrow and meet with program therapist and psychiatrist. Current goal is to prevent decompensation and stablize mood.
--- NOTE | 2019-09-30 08:05 | BH.COMM ---
Communication Note - Communication with Client Communication Note: Called and updated current medications which include Cogentin 0.5mg 2x daily, [place] 300mg 3x daily, and Abilify injection (300mg) with next dose on 10/15/19.
--- NOTE | 2019-09-30 11:30 | BH.COMM ---
Communication Note - Communication with Client Communication Note: Pt did not show for IOP again today, therefore he missed 2nd scheduled appt with psychiatrist. Pt called later on in the day and stated that he overslept as he did not go to sleep till 2am. Due to severity of symptoms and high probability of decompensation w/o structured treatment we remain committed to keep him in the program, however if he fails to show for future appts we are left with no choice but to discharge.
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
--- NOTE | 2019-10-02 09:35 | BH.MDN_ITS ---
Multi-Disciplinary Note - Note 30-min Individual Time Started:: 08:40 Date: 10/02/19 Purpose of session/treatment goals addressed:: The purpose of this session was to begin addressing treatment goals and discuss current behaviors reinforcing pts mental health sx. Identify healthy activities for reducing restlessness and preventing agitation. Symptoms/Behavior:: This counseling session was provided via telehealth using two-way, real-time interactive telecommunication technology between the patient and the clinician. The interactive telecommunication technology included audio and video. The patient was offered telehealth as an option for care delivery during the COVID-19 pandemic and consented to this option. Patient location: [place]. Provider located at [facility] Eye Contact:: Fair Motor Activity:: Restless Appearance:: Casual Speech:: Pressured, Tangential Mood:: Anxious, Depressed Affect:: Full Thoughts:: Racing, Flight of ideas, No evidence of hallucinations/delusions noted Staff Interventions:: motivational interviewing, psychoeducation on: - routine and structure, strengths perspective, taught coping skills - emotion regulation, healthy self-care activities for restlessness Client Response:: Client responded well to session, open to meeting with therapist via telehealth. Client shared that he just woke up and spend a few minutes getting ready for the day prior to meeting with this therapist. Discussed that he has been struggling to know what to do with himself during the day, indicating that he often feels restless and does not know how to best harness the excess energy he has,. Shared often spending time online, listening to music, or on occasion will go for a walk. 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 Pt struggling to focus during session and was restless throughout, often jumping around in topics of conversation. Discussed that his difficulties with restlessness and in being in the home all day is further increasing tensions within his marriage and that he and his have been arguing more. Pt expressed ?loving myself is taking care of myself, I know my mental health is serious and I need help?. Due to issues involving pt?s legal work status he is unable to secure employment at this time. With much redirection, pt was willing to work with therapist on identifying activities he can engage in to fill his time while also relieving pt of excess energy. 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 Noted he has additionally been working with a counselor, [facility], to better accept and learn to cope with his Bipolar dx. Risks/Concerns:: Denies any active suicidal ideations, plan, or intent as of this date. Future oriented and setting goals for self. Pt appears restless and is difficult to keep focused. If pt does not begin implementing healthy coping skills and stabilize medications, he is likely to experience a manic crisis. Pt is working with program to improve medication management, thought struggles with consistent compliance. Progress Toward Goals/Plan:: Client's first week in treatment, continuing to adjust to treatment environment. Client reports feeling restless at home which is creating several interpersonal problems. Restless throughout session and appears to struggle with concentration which may hinder internalization and application of skills reviewed during session. Pt recommended continued IOP tx to prevent decompensation, improve stability, and maintain safety. Time Stopped:: 09:16
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
--- NOTE | 2019-10-02 09:36 | BH.MTP ---
Master Treatment Plan - Patient Information Program Physician:: Dr. Isabella Delgado Primary Therapist:: MIKEY Gunter - Psychiatric Diagnoses Psychiatric Diagnoses:: Bipolar 1 disorder, most recent episode manic, severe, with psychosis (resolving); akathisia secondary possibly to IM Abilikyliey Diagnosis Code(s):: F31.2 - Estimated LOS Estimated LOS (in weeks):: 6 Problem/Goal #1 - Problem/Goal #1 Stated Goal:: Client will increase mood stability and decrease depressive symptoms, anger/irritability, and impulsivity due to Bipolar I through Intensive Outpatient Program. Description of Barriers: mood instability, client not a citizen of , cultural barriers, lack of transportation, limited internet connectivity Functional Impact: The pt is a 44-year-old -[place] male who presents to [facility] tx following hospitalization at [facility] from September 11 to September 18, 2019. Pt has a history of bipolar riley with psychotic features and was admitted for riley with delusions and disorganized thought process. He had grandiose and cheondoism delusions at the time of psychiatric admission. Pt currently denies any delusions or hallucinations. At time of admission, pt complains of restlessness which he describes as an inability to sit down or sit still, racing thoughts, poor concentration, poor motivation, increased emotion dysregulation including irritability, and feeling isolated. Denies any HI/SI, plan, or intent, or hx of self-harming behaviors. Reports current symptoms are exacerbated by his loss of green card status, lack of work, postponement of upcoming court date, financial stress, and his mother?s health who is ill in [place]. Pt is receiving outpatient counseling and psychiatry services through [facility]. Pt hopes to improve symptom management and reduce restlessness while in the IOP program. - Objectives Objective #1 Stated Objective: Client will reduce depression, suicidal thinking, and impulsivity by identifying 2-3 triggers for mood changes and at least 3 ways to cope with these. Interventions: Therapist will help client through individual and family work to identify what may trigger mood swings. Therapist will encourage the use of a mood log, or another way to track betty to help client intervene before mood worsens. Discharge Criteria: Client will have met this goal when mood is stable, is able to identify at least 2 triggers, and 2 coping skills to use. Client will also be able to identify when should use these triggers. Target Date: 11/03/19 Review Date: 10/20/19 Objective #2 Stated Objective: Pt will decrease depressive and irritability, as well as stabilize mood symptoms AEB pt?s score on the DSM 5 cross-cutting measure and improve pt?s daily functioning. Interventions: Through groups and individual therapy, pt will be provided with education on cognitive distortions, mistaken beliefs, and identifying and combating negative self-talk. Therapist will assist pt with getting back into the activities she once enjoyed as well as increasing healthy coping strategies. Discharge Criteria: Pt will have met this goal when pt?s score on the DSM 5 cross cutting measure for depression and irritability has been decreased and per pt?s report daily functioning has improved. Target Date: 11/03/19 Review Date: 10/20/19 Problem/Goal #2 - Problem/Goal #2 Stated Goal:: Client will reduce restlessness causing increased agitation and anxiety due to Akathisia through active IOP engagement and additional constructive activities. Description of Barriers: mood instability, client not a citizen of , cultural barriers, lack of transportation, limited internet connectivity Functional Impact: The pt is a 44-year-old -[place]ombian male who presents to [facility] tx following hospitalization at [facility] from September 11 to September 18, 2019. Pt has a history of bipolar riley with psychotic features and was admitted for riley with delusions and disorganized thought process. He had grandiose and cheondoism delusions at the time of psychiatric admission. Pt currently denies any delusions or hallucinations. At time of admission, pt complains of restlessness which he describes as an inability to sit down or sit still, racing thoughts, poor concentration, poor motivation, increased emotion dysregulation including irritability, and feeling isolated. Denies any HI/SI, plan, or intent, or hx of self-harming behaviors. Reports current symptoms are exacerbated by his loss of green card status, lack of work, postponement of upcoming court date, financial stress, and his mother?s health who is ill in [place]. Pt is receiving outpatient counseling and psychiatry services through [facility]. Pt hopes to improve symptom management and reduce restlessness while in the IOP program. - Objectives Objective #1 Stated Objective: Client will create a daily schedule with activities to increase mood and activity. Interventions: Therapist will help client identify activities, in line with maintaining mood stability, and help client explore additional social outlets. Discharge Criteria: Client will have achieved this goal when he has expressed engaging in at least one new activity 3 out of the 7 day week. Target Date: 11/03/19 Review Date: 10/20/19
--- NOTE | 2019-10-05 09:06 | BH.COMM ---
Communication Note - Communication with Client Communication Note: Client scheduled for individual session via telehealth on this date; however, indicated his son has summer school classes at the same time and would need the computer. Client scheduled to meet with individual therapist for telehealth session tomorrow instead.
--- NOTE | 2019-10-06 13:53 | BH.MDN ---
Multi-Disciplinary Note - Note 30-min Individual Time Started:: 15:36 Date: 10/06/19 Purpose of session/treatment goals addressed:: The purpose of this session was to work on goal #1 obj #2 and goal #2 of client's tx plan. Symptoms/Behavior:: This counseling session was provided via telehealth using two-way, real-time interactive telecommunication technology between the patient and the clinician. The interactive telecommunication technology included audio and video. The patient was offered telehealth as an option for care delivery during the COVID-19 pandemic and consented to this option. Patient location: [place]. Provider located at [facility] Eye Contact:: Fair Motor Activity:: Restless - often pacing during session Appearance:: Casual Speech:: Pressured Mood:: Anxious, Depressed Affect:: Congruent Thoughts:: Linear, Logical, Racing, No evidence of hallucinations/delusions noted Staff Interventions:: Therapist taught client coping skills and provided psychoeducation on progressive muscle relaxation to improve emotional regulation and help client cope with restlessness in the moment. Therapist used CBT and Motivational Interviewing techniques to help client gain awareness of unhealthy coping skills reinforcing mood instability and restlessness. Brainstormed with client potential healthy means of emotional release. Client Response:: Client responded well to session, open to meeting with therapist. Client struggled at times with maintaining attention during discussion. Client continues to indicate ongoing restlessness which significantly impacts ability to concentrate and often results in increased anxiety and agitation as the day progresses. Reviewed strategies client tried utilizing previous day to manage restlessness as discussed in prior session. Reports trying to do some cleaning but found this ineffective. Denies following through with goal to go for a walk or spend some time outdoors; however, reported he did leave the house to stop at the store yesterday evening. Some progress as client reports most days he does not leave the home. Denies trying to write in his journal as he previously identified to be a coping skill that has worked in the past. Discussed ?I was feeling to lazy and unfocused to write?. Client experiencing difficulties remaining still throughout session, which continues to impede ability to focus on materials discussed. Receptive of psychoeducation on progressive muscle relaxation to Reports ?it feels like there?s a full stop to everything in my life? and expressed this has further been highlighted by ongoing unemployment. Shared feeling he has no purpose. Therapist and client reviewed different activities he may engage in to provide some enjoyment as well as reduce restlessness. Client distorted thoughts remain difficult to challenge due to ongoing hypomania and extreme restlessness. Client also reviewed self-soothing strategies such as 5-senses, going for walks, and affirmations. Discussed the benefits of using emotional release, distractions, and challenging self to focus on one thing at a time to reduce racing thoughts. Risks/Concerns:: Client denies any suicidal ideations, plan, or intent as of 10/06/19. Progress Toward Goals/Plan:: Client is demonstrating limited progress towards tx goals as he continues to struggle with significant restlessness and racing thoughts impeding ability to effectively internalize and apply skills learned. Continues to struggle with concentration and remaining engaged for prolonged periods of time. Client continues to endorse severe restlessness, anxiety, and agitation that impacts client's ability to function. Client reports constant ruminations and racing thoughts. Willing to learn new self-soothing skills. Will continue IOP tx to prevent decompensation, reduce restlessness and distortions, and increase use of healthy coping skills. Time Stopped:: 16:05
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
[2019-10-07 11:45] VITALS: BP 148/72; PULSE 60
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
--- NOTE | 2019-10-07 12:41 | BH.PSY.EVA_ITS ---
Initial Treatment Plan - Patient Information Visit Information: ADMISSION DATE: EXPECTED LOS: 4-6 weeks - Problems/Symptoms Problem #1:: Arelis history Symptom:: Impulsivity, delusions, restlessnessdecreased concentration, Biolo gical disruption os sleep Problem #2:: Akathisia Symptom:: Restlessness, inability to sit still
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
--- NOTE | 2019-10-08 14:08 | BH.COMM ---
Communication Note - Communication with Client Communication Note: Client scheduled to meet for individual telehealth session on this date. Client did not show for scheduled appointment and therapist was unable to contact him via telephone as his number is out of service. Attempted to contact his whom is the client's emergency contact, however that number was also unavailble. Therapist emailed client encouraging him to return this therapsit's call and reschedule missed appointment. Will continue to follow-up.
--- NOTE | 2019-10-09 14:14 | BH.COMM ---
Communication Note - Communication with Client Communication Note: Therapist again attempted to reasch pt to rescheduled last missed appointment and follow-up. Pt unable to be reached as current phone numbers for himself and his are out of service. Will continue to attempt to contact.
--- NOTE | 2019-10-12 14:19 | BH.COMM ---
Communication Note - Communication with Client Communication Note: Therapist again attempted to contact pt who was unavailable due to phone being out of service. Therapist emailed pt explaining the attendance requirements for the program and requesting a return call or email. Will continue to follow-up and if pt does not reply by 10/14/19, he will be discharged from the IOP tx program.
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
--- NOTE | 2019-10-14 15:12 | BH.COMM ---
Communication Note - Communication with Client Communication Note: Did not show for scheduled appointment with psychiatrist today.
--- NOTE | 2019-10-16 15:46 | BH.COMM ---
Communication Note - Communication with Client Communication Note: Client scheduled to meet with therapist at 8:30am on this date for individual session and to discuss appropriate level of care options. Client however did not show for scheduled session and later called to indicate he had overslept and would like to meet later in the afternoon if possible. Agreeable to meet with therapist at 2pm.
--- NOTE | 2019-10-16 16:11 | BH.MDN_ITS ---
Multi-Disciplinary Note - Note 30-min Individual Time Started:: 14:11 Date: 10/16/19 Purpose of session/treatment goals addressed:: The purpose of this session was to address client's symptoms and stressors impacting progress. Another purpose was to discuss strategies for reducing depressive sx. Client however reported physical pain in chest, therefore a majority of session was spent counseling client on the importance of addressing physical health concerns and advising he seek medical care. Symptoms/Behavior:: This counseling session was provided via telehealth using two-way, real-time interactive telecommunication technology between the patient and the clinician. The interactive telecommunication technology included audio and video. The patient was offered telehealth as an option for care delivery during the COVID-19 pandemic and consented to this option. Patient location: [place]. Provider located at [facility] Eye Contact:: Good Motor Activity:: Appropriate, Other - clutching chest at one point when complaining of pain Speech:: Appropriate, Other - loud when discussing frustrations Mood:: Anxious, Irritable, Depressed Affect:: Full Thoughts:: Linear, Logical, No evidence of hallucinations/delusions noted Staff Interventions:: Therapist used open-ended questions to explore client's current symptoms, stressors, and thoughts on barriers impacting progress. Therapist provided emotional support and helped client process emotion related to current life stressors. Therapist discussed with client importance of taking psychiatric medications as prescribed, as well as reviewed coping skills with client to promote gains and prevent setbacks. Upon becoming notified of client experiencing physical chest pain, Therapist counseled client on the importance of seeking immediate medical care and potential risks of not doing so. Collaborated with Client and his to create a plan for client to be taken to E.D. dept. for further evaluation. Willing to inform this therapist upon arrival to hospital. Client Response:: Client responded well to session, open to meeting with therapist. Client reports feeling more depressed this afternoon than he had earlier in the morning when he spoke with therapist to reschedule time of today?s session. Indicates that he had planned to ?get my routine going after I spoke with you this morning?, but struggled to gather the motivation to do any of the tasks he had planned. Expressed instead he remained in bed for most of the day so that he did not have to think about how frustrated he is with his current circumstances. Reports last night he had been struggling with feeling hopeless and as though ?Life is not worth living?. Denies that this was suicidal in nature but that he is frustrated and feels depressed. Denies any thoughts of harming himself. Denies any active SI, plan, or intent. Client denied engaging in the nature related activities as discussed during in session on Saturday and noted that he has been struggling to force himself to do much of anything outside of sleeping. Went on to indicate that another reason he has been sleeping so much is due to increased restlessness and feels sleep is the only thing that helps. Client recently prescribed Propranolol 20mg twice daily to address this restlessness or akathisia. Client reports that he has not taken his medication in the last two days due to sleeping much of the day and choosing not to. Expressed that over the past two days he has also been ?found out that something I?ve been ignoring is actually a problem? and explained experiencing increased chest pain accompanied by uncontrolled yelling and muscle spasms. Reports he has not yet consulted a doctor about these concerns but is wondering if her should. Therapist encouraged client to consult his doctor as chest pain can be a serious issue and go into the emergency dept. should he experience more immediate symptoms. Additionally, discussed with client the importance of taking his psychiatric medication consistently in order to maintain safety. During this discussion, client?s young son ran into the room playing with a loud toy. Client became agitated and went to tell his son to stop, however yelled and reported that his chest was beginning to hurt again. Reported this happens several times a day and causes intense pain. Therapist informed client he should seek immediate emergency care as chest pain is a serious concern. Client reported willingness to do so but was unsure of if he would have a ride. Client and therapist consulted with his whom agreed to take him into the [facility] E.D. for further evaluation. Client and his report they are willing to call and inform this therapist upon arrival. Therapist called to inform the Emergency Dept. of client?s expected arrival and consult with the criminal justice social worker on staff. Risks/Concerns:: Client reports increased passive thoughts of ?I?d be better of ?, though denies any suicidal ideations, plan, or intent as of 10/16/19. Future oriented. Lisbeth and family are primary protective factors. Client reported experiencing chest pain during session. Advised to seek emergency medical care in which he was agreeable to be taken to the [facility] E.D[facility] by his . Reports not taking any of his psychiatric medications over the past two days. Does not display any signs of riley as client able to maintain a consistent conversation, able to sit still entire duration of session, content is on topic and relevant. No rambling. No evidence of any delusions or hallucinations. Progress Toward Goals/Plan:: Client has responded poorly to treatment thus far and has demonstrated limited progress due to inconsistent follow-through and poor medication management. Pt is aware of risks of not taking medication on worsening symptoms of psychosis however noted not taking any meds the past two days. Does not currently present with any sx of psychosis or riley. Denies delusions or hallucinations. Denies thoughts of harming self or others. He continues to report depressive sx of feeling stuck, no motivation, and apathy. Recognizes importance of opposite action and thought challenging though often s truggles to implement skills identified in session. Client reports increased physical pain today which was having a negative impact on ability to regulate anxiety. Willing to seek emergency medical care. Time Stopped:: 14:38
--- NOTE | 2019-10-16 16:22 | BH.COMM_ITS ---
Communication Note - Communication with Client Communication Note: Therapist contacted ED staff nurse and social organization professor on duty of concerns regarding client reports of chest pain during session. Informed ED staff that client was in agreement to seek medical care and his was agreeable to bring him in for futher assessment. Will follow-up to ensure client arrives to ED safely.
--- NOTE | 2019-10-16 16:25 | BH.COMM ---
Communication Note - Communication with Client Communication Note: Client called back to inform this therapist that he no longer wanted medical care and does not plan to go the the ED for reported chest pain as previously discussed. Pt indicates he would rather just try to fight this myself. Therapist discussed with client the importance of ensuring his physical health and safety and srtongly advised he seek medical treatment. Discussed the potential risks stopping his medication without physician oversight on his physical and mental health. Additionally, discussed with pt the risks of not seeking urgent care for chest pain. Again, strongly urged client to seek emergency services. Client again declined care against therapist recommendation. He does not appear actively psychotic, no evidence of delusions or hallucinations. Client agreeable to seek emergency services should his chest pain return or worsen at anytime. Therapist informed ED staff of pt refusal to seek care.
--- NOTE | 2019-10-19 16:43 | BH.COMM ---
Communication Note - Communication with Client Communication Note: Therapist attempted to contact pt to follow-up after session on 10/16/19 as well as to discuss IOP level of care and aftercare plans. Pt however did not answer and a discrete message was left encouraging him to call this therapist back.
--- NOTE | 2019-10-22 11:15 | BH.DS_ITS ---
Discharge Summary - Demographics Date of Admission:: 09/22/19 Discharge Date: 10/22/19 Presenting Problems at Admission:: The pt is a 44-year-old - [place] male who presents to [facility] tx following hospitalization at [facility] from September 11 to September 18, 2019. Pt has a history of bipolar riley with psychotic features and was admitted for riley with delusions and disorganized thought process. He had grandiose and uatsdin delusions at the time of psych iatric admission. Pt currently denies any delusions or hallucinations. At time of admission, pt complains of restlessness which he describes as an inability to sit down or sit still, racing thoughts, poor concentration, poor motivation, increased emotion dysregulation including irritability, and feeling isolated. Denies any HI/SI, plan, or intent, or hx of self-harming behaviors. Reports current symptoms are exacerbated by his loss of green card status, lack of work, postponement of upcoming court date, financial stress, and his mother?s health who is ill in [place]. Pt is receiving outpatient counseling and psychiatry services through [facility]. Pt hopes to improve symptom management and reduce restlessness while in the IOP program. Discharge Diagnoses:: Bipolar 1 disorder, most recent episode manic, severe, with psychosis (resolving); akathisia secondary possibly to IM Abilify Reason for Discharge:: Pt has struggled with regular attendance while in the IOP program. He was unable to attend group sessions due to needing increased stability of manic symptoms and was to meet for individual sessions until stable enough to return to group environment. However, pt struggled to regularly attend individual sessions and often no-showed or canceled individual sessions. Pt additionally struggled with consistent medication compliance and implementation of treatment skills, impacting ability to make progress. Pt indicated that he is interested in continuing counseling sessions on an individual basis but is still unable to secure consistent transportation or child development teacher arrangements to eventually attend group sessions on a regular basis. Indicates that his home environment is not suitable for telehealth group as he has multiple people in the home and cannot ensure privacy or consistent access to telehealth methods. Noted understanding the IOP program requires group as well as individual treatment involvement. Given pt transpotation and attendance issues it is determined that he would be better suited for outpatient counseling at this time. Pt does not pose a risk to self or others and therefor would not require a higher level of care either. Client was receptive of transitioning back to outpatient counseling and psychiatry services as a result. Pt connected with [facility]. - Treatment Progress During Treatment & Response: Progress limited throughout treatment as pt often struggled with consistent attendance and mood stability which impacted his overall ability to internalize the skills learned in individual treatment. Pt has been able to successfully learn skills he can use to improve his mood when feeling increased energy and manic related symptoms or beginning to struggle with depression. However, since beginning the IOP tx program, pt has struggled to apply the skills learned such as getting outside for regular walks, journaling, or trying to do something physically active such as basketball. Pt often struggled with focusing on current external stressors without identifying areas in which he continues to have some control over those stressors. This has continued to impact willingness and ability to implement skills needed to make consistent progress. Client was able to reduce symptoms of Akathisia through medication changes and reports consistently taking his psychiatric medications over the past week. He does have a history of medication noncompliance which could continue to be a barrier to ongoing treatment progress on the individual level. Issues Still to be Addressed:: Emotion regulation, recognition of potential warning signs and triggers for changes in mood or potential manic or depressed state, increased focus on application of behavioral activation skills, thought challenging, healthy boundaries and relationship skills, including improved communication. Discharge Recommendations/Instructions:: km was receptive of transitioning back to outpatient counseling and psychiatry services as a result. Pt connected with [facility] and is scheduled to return to consistent outpatient counseling with his provider, Vanessa, on SaturdayOctober 25 at 4pm. Pt is also encouraged to continue with outpatient psychiatry with Malou [facility] as well. Pt is aware of emergency mental health crisis resources available and reports willingness to call crisis or seek emergency hospital care should he feel he needs to at any time. Discharge Handout: Complete Discharge Handout with client on aftercare options and continuity of care.
== END 2019-10-20 23:59 | disposition home or self-care (01) ==
LOC: BHIOP 09:00
PROVIDERS: PCP Family Medicine; Referring Provider Psychiatry & Neurology Psychiatry; Visit Provider Psychiatry & Neurology Psychiatry
DX: F31.64 Bipolar disorder, current episode mixed, severe, with psychotic features (principal); G25.71 Drug induced akathisia; F17.210 Nicotine dependence, cigarettes, uncomplicated; Z79.899 Other long term (current) drug therapy; Z86.19 Personal history of other infectious and parasitic diseases
CPT/HCPCS: 90792; H0035; T1002; 90832; 90837

== ENCOUNTER 2020-07-09 20:39 | Emergency (ER) | payer MEDICAID, SELFPAY ==
[2019-09-11 12:00] VITALS: BMI 21.6
[2020-07-09 20:40] VITALS: BP 151/70; PULSE 96; RESP 18; TEMP 36.4; O2SAT 98; BMI 23.1
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
[2020-07-09 21:47] LABS: Absolute Lymphocyte Count 1.89 X10^3/uL (0.83-4.51); Absolute Neutrophil Count 4.1 X10^3/uL (2.0-7.7); Basophil# 0.03 X10^3/uL; Basophil% 0.4 % (0-1); Eosinophil# 0.09 X10^3/uL; Eosinophils% 1.3 % (0-5); Hematocrit 38.5 % (40-54); Hemoglobin 12.4 g/dL (13.0-16.5); Lymphocyte # 1.89 X10^3/ul (4.0); Lymphocyte % 27.6 % (19-41); Mean Corp Hgb Conc 32.2 g/dL (32-36); Mean Corpuscular Hgb 24.7 pg (27.0-32.0); Mean Corpuscular Volume 76.5 fL (80-94); Mean Platelet Vol. 9.6 fl (6.2-12.0); Monocyte# 0.74 X10^3/uL; Monocyte% 10.8 % (0-10); NRBC Flagged by Analyzer 0 % (0-5); Neutrophil # 4.08 X10^3/uL (2.7-7.7); Neutrophil % 59.8 % (47-70); Platelet Count 171 K/mm3 (150-450); RBC Distribution Width CV 12.2 % (11.6-14.6); RBC Distribution Width SD 33.3 fl (35.1-43.9); Red Blood Count 5.03 M/mm3 (4.6-6.2); White Blood Count 6.8 K/mm3 (4.4-11.0)
--- NOTE | 2020-07-09 21:59 | EKG12_ITS ---
Test Reason : MENTAL HEALTH Blood Pressure : / mmHG Vent. Rate : 075 BPM Atrial Rate : 075 BPM P-R Int : 164 ms QRS Dur : 096 ms QT Int : 372 ms P-R-T Axes : 065 077 059 degrees QTc Int : 415 ms Normal sinus rhythm Voltage criteria for left ventricular hypertrophy Abnormal ECG Confirmed by ELVIA HUGHES, WOODY ([id number]), map editor KYLAH HULL ([id number]) on 07/12/2020 8:57:01 AM Referred By: VAISHNAVI Confirmed By:WOODY GAN MD
[2020-07-09 22:04] LABS: Anion Gap 5 (5-15); BUN 15 mg/dL (7-18); BUN/Creat Ratio 12.1 RATIO (10-20); Calcium,Total 9.5 mg/dL (8.5-10.1); Chloride 101 mmol/L (98-107); Creatinine, Serum 1.24 mg/dL (0.70-1.30); EST Glomerular Filtration Rate 67 mL/min (>60); Est Glom Filt Rate - Afr Amer 81 mL/min (>60); Estimated Creatinine Clearance 87.79 ml/min; Glucose 99 mg/dL (74-106); Sodium Level 134 mmol/L (136-145)
[2020-07-09 22:11] LABS: Alcohol, Blood (Medical)-Serum < 3.0 mg/dL
[2020-07-09 22:18] VITALS: RESP 16
[2020-07-09 22:36] LABS: Amphetamine Urine VISTA NEGATIVE (<1000 ng/mL); Barbiturate Urine VISTA NEGATIVE (< 200 ng/mL); Benzodiazepine Urine VISTA NEGATIVE (< 200 ng/mL); Cocaine Urine VISTA NEGATIVE (< 300 ng/mL); Ecstacy Urine VISTA NEGATIVE (< 500 ng/mL); Methadone Urine VISTA NEGATIVE (< 300 ng/mL); PCP Urine VISTA NEGATIVE (< 25 ng/mL); THC Urine VISTA POSITIVE (< 50 ng/mL); Vista UDS pH Range 6
[2020-07-09 23:00] VITALS: RESP 18
--- NOTE | 2020-07-09 23:25 | ED.RN ---
YOSEF CALLED AND SAID HE WAS SENDING A REFERRAL TO [facility]
[2020-07-10 00:06] VITALS: RESP 16
--- NOTE | 2020-07-10 00:33 | ED.RN ---
PT REQUESTS NO INFORMATION GIVEN TO HIS , STATES THEY ARE NOT ON GOOD TERMS AND HE WILL BE SEEKING A DIVORCE. PT ALSO STATES HE DOES NOT WANT TO COME FIRER LOCOMOTIVE ANY OF HIS BELONGINGS. PT ESPECIALLY CONCERNED WILL ATTEMPT TO TAKE CAR KEYS.
[2020-07-10 03:10] VITALS: BP 151/78; PULSE 83; RESP 16; O2SAT 98
[2020-07-10 03:19] VITALS: BP 151/78; PULSE 83; RESP 16; TEMP 36.4; O2SAT 98
== END 2020-07-10 03:52 ==
PROVIDERS: Emergency Provider Emergency Medicine; PCP Family Medicine
DX: R45.6 Violent behavior (principal); R45.87 Impulsiveness; F30.8 Other manic episodes; F17.200 Nicotine dependence, unspecified, uncomplicated
CPT/HCPCS: 80048; 80307; 82077; 85025; 87426; 93005; 99285